=== PATIENT | male | born 2000 | race African-American/Black ===

== ENCOUNTER 2023-02-14 15:02 | Emergency (ER) | payer OTHER, BC, SELFPAY ==
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
[2023-02-14 15:15] VITALS: BP 131/75; PULSE 73; RESP 16; TEMP 36.4; O2SAT 98
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
[2023-02-14] MEDS: methocarbamoL 750 MG TABLET PO (16:23)
[2023-02-14] MEDS: IBUPROFEN 600 MG TABLET PO (16:23)
[2023-02-14] MEDS: LIDOCAINE 5% PATCH 1 PATCH TRANSDERM (16:23)
== END 2023-02-14 16:36 | disposition home or self-care (01) ==
PROVIDERS: Emergency Provider Nurse Practitioner; PCP Family Medicine
DX: S13.4XXA Sprain of ligaments of cervical spine, initial encounter (principal); S39.012A Strain of muscle, fascia and tendon of lower back, initial encounter; V44.5XXA Car driver injured in collision with heavy transport vehicle or bus in traffic accident, initial encounter
CPT/HCPCS: 72125; 99284; A9270